=== PATIENT | male | born 1990 | race Caucasian/White ===

== ENCOUNTER 2019-11-03 18:36 | Emergency (ER) | payer BC ==
[~2019-11-03] VITALS: Ht 180.3 cm; Wt 101.0 kg
[2019-11-03 18:52] VITALS: BP 171/81
[2019-11-03] MEDS ORDERED: AMOXICILLIN/K CLAV 875/125MG TABLET. PO ONE (19:00)
[2019-11-03] MEDS ORDERED: TETANUS AND DIPHTHERIA TOX/PF 0.5 ML DISP.SYRIN. VAX IM ONE (19:00)
[2019-11-03] MEDS ORDERED: LIDOCAINE 1% Multi-Dose 20 ML VIAL. INJ ONE (19:00)
--- NOTE | 2019-11-03 19:00 | PHYS DOC ---
Past Medical History Past Medical History: No Pertinent History Past Surgical History: No Surgical History Smoking Status: Never Smoker Alcohol Use: None General Adult EDM: Chief Complaint: ANIMAL BITE HPI: HPI: Patient is a 29 year old left-handed male who was bit by his own husky prior to arrival. Dog is vaccinated. Patient sustained multiple puncture wound lacerations to left hand and left thumb and first finger. Patient has some tingling in the fingers. Limited range of motion due to pain. No other injuries. Pain is moderate in intensity and worse with palpation and movement. Review of Systems: Review of Systems: Constitutional: Denies fever or chills. [] Eyes: Denies change in visual acuity. [] HENT: Denies nasal congestion or sore throat. [] Respiratory: Denies cough or shortness of breath. [] Cardiovascular: Denies chest pain or edema. [] GI: Denies abdominal pain, nausea, vomiting, bloody stools or diarrhea. [] : Denies dysuria. [] Musculoskeletal: Denies back pain or joint pain. [] Integument: Laceration to left hand Neurologic: Denies headache, limited range of motion of left hand and decreased sensation. Endocrine: Denies polyuria or polydipsia. [] Lymphatic: Denies swollen glands. [] Psychiatric: Denies depression or anxiety. [] Heart Score: Risk Factors: Risk Factors: DM, Current or recent (<one month) smoker, HTN, HLP, family history of CAD, obesity. Risk Scores: Score 0 - 3: 2.5% MACE over next 6 weeks - Discharge Home Score 4 - 6: 20.3% MACE over next 6 weeks - Admit for Clinical Observation Score 7 - 10: 72.7% MACE over next 6 weeks - Early Invasive Strategies Physical Exam: PE: Constitutional: Well developed, well nourished, no acute distress, non-toxic appearance. [] HENT: Normocephalic, atraumatic, bilateral external ears normal, no trismus, nose normal. [] Eyes: PERRLA, EOMI, conjunctiva normal, no discharge. [] Neck: Normal range of motion, no tenderness, supple, no stridor. [] Cardiovascular:Heart rate regular rhythm, peripheral pulses intact, cap refill brisk Lungs & Thorax: Bilateral breath sounds clear, no respiratory distress Abdomen: No distention Skin: Multiple small puncture wounds to left hand and index finger Back: No tenderness, no CVA tenderness. [] Extremities: Multiple puncture wounds to left hand index finger and thumb, limited range of motion due to pain. Slight decreased sensation distally but can feel gross sensation. Left thumb nailbed partially avulsed. Lacerations all non-gaping. Neurologic: Alert and oriented X 3, slight decrease of range of motion left thumb and index finger, slight decrease sensation of the thumb and index. Psychologic: Affect normal, judgement normal, mood normal. [] Current Patient Data: Vital Signs: Vital Signs Date Time Temp Pulse Resp B/P (MAP) Pulse Ox O2 Delivery O2 Flow Rate FiO2 11/03/19 18:52 98.6 79 20 171/81 (111) 98 Room Air 98.6 EKG: EKG: [] Radiology/Procedures: Radiology/Procedures: [][facility] [address] [place] [address] IMAGING REPORT Signed PATIENT: HAILY CALL ACCOUNT: [id number] : 1990 LOCATION: ER AGE: 29 SEX: M EXAM STATUS: REG ER ORD. PHYSICIAN: MAU ORTEGA MD REASON: DOG BITE PROCEDURE: HAND LEFT 3V HAND LEFT 3V History: Dog bite Comparison: None. Findings: 3 views of the left hand are submitted. There is a small corticated likely avulsed bone fragment along the radial proximal aspect of the third proximal phalanx. No convincing acute fracture is identified. Impression: 1. There is a small corticated bone fragment along the radial proximal aspect of the third proximal phalanx believed to be old. Electronically signed by: Raul Carmen MD (11/03/2019 8:36 PM) [facility] DICTATED and SIGNED BY: RAUL CARMEN MD DATE: 11/03/192035 Course & Med Decision Making: Course & Med Decision Making Pertinent Labs and Imaging studies reviewed. (See chart for details) [] After verbal consent was obtained a digital block was performed on the left using a dorsal approach. Approximately 3 cc of 1% lidocaine was administered with good anesthesia. No complications. The wounds were then irrigated with saline and then the patient will start all wounds with soap and water copiously irrigated with saline again. This is done on the thumb as well as the entire hand. The exposed nail bed was then tucked under the proximal skin, there is a laceration under the nailbed that is well approximated not actively bleeding. 29-year-old male with dog bite to left hand. Wounds are not gaping and I feel like suturing him at this time will be increasing the risk of infection. Patient has gotten antibiotics and tetanus in the ER. Wounds were all copiously irrigated and the nail matrix has been approximated to near anatomic position Dragon Disclaimer: Dragon Disclaimer: This electronic medical record was generated, in whole or in part, using a voice recognition dictation system. Departure Departure Impression: Primary Impression: Dog bite of left hand Additional Impressions: Puncture wound of left hand Injury of left thumbnail Disposition: HOME, SELF-CARE Condition: STABLE Referrals: NO PCP (PCP) OLEGARIO NAVARRO MD 2-3 DAYS Patient Instructions: Animal Bite, Nail Bed Injury Additional Instructions: EMERGENCY DEPARTMENT GENERAL DISCHARGE INSTRUCTIONS THANK YOU for coming to [facility] Emergency Department (ED) today and trusting us with your care. We trust that you had a positive experience in our Emergency Department. If you wish to speak to the department Management you can contact the soaping department supervisor at . YOUR FOLLOW UP INSTRUCTIONS ARE FOLLOWS: Do you have a private doctor? If you do not have a private doctor, please ask for a resource list of physicians or clinics that may be able to assist you with follow up care. The Emergency Physician has interpreted your x-rays. The X-ray specialist will also review them. If there is a change in the findings you will be notified in 48 hours when at all possible. A lab test or lab culture may have been done, your results will be reviewed and you will be notified if you need a change in treatment. ADDITIONAL INSTRUCTIONS AND INFORMATION Your care today has been supervised by a physician who is specially trained in emergency care. Many problems require more than one evaluation for a complete diagnosis and treatment. We recommend that you schedule your follow up appointment as recommended to ensure complete treatment of your illness or injury. If you are unable to obtain follow up care and continue to have a problem, or if your condition worsens we recommend that you return to the ED. We are not able to safely determine your condition over the phone nor are we able to give sound medical advice over the phone. For these safety reasons, if you call for medical advice we will ask you to come to the ED for further evaluation If you have any questions regarding these discharge instructions please call the ED at . SAFETY INFORMATION In the interest of safety, wellness, and injury prevention; we encourage you to wear your seatbelt, if you smoke; quit smoking, and we encourage your family to use protective helmet for bicycling and other sporting events that present an increased risk for head injury. IF YOUR SYMPTOMS WORSEN OR NEW SYMPTOMS DEVELOP, OR YOU HAVE CONCERNS ABOUT YOUR CONDITION; OR IF YOUR CONDITION WORSENS WHILE YOU ARE WAITING FOR YOUR FOLLOW UP APPOINTMENT; EITHER CONTACT YOUR PRIMARY CARE DOCTOR, THE PHYSICIAN WHOSE NAME AND NUMBER YOU WERE GIVEN, OR RETURN TO THE ED IMMEDIATELY. Scripts Hydrocodone/Apap 5-325 (NORCO 5-325 TABLET) 1 Each Tablet 1-2 EACH PO PRN Q6HRS PRN for PAIN, #15 as needed for pain Prov: MAU ORTEGA MD 11/03/19 Amoxicillin/Potassium Clav (AUGMENTIN 875-125 TABLET) 1 Each Tablet 1 TAB PO BID for 10 Days, #20 TAB 0 Refills Prov: MAU ORTEGA MD 11/03/19 Justicifation of Admission Dx: Justifications for Admission: Justification of Admission Dx: N/A MAU ORTEGA MD Nov 03, 2019 19:00
[2019-11-03] MEDS ORDERED: HYDROcodone/APAP 7.5/325MG 1 TAB TABLET PO ONE (19:15)
--- NOTE | 2019-11-03 20:39 | RAD ---
HAND LEFT 3V History: Dog bite Comparison: None. Findings: 3 views of the left hand are submitted. There is a small corticated likely avulsed bone fragment along the radial proximal aspect of the third proximal phalanx. No convincing acute fracture is identified. Impression: 1. There is a small corticated bone fragment along the radial proximal aspect of the third proximal phalanx believed to be old. Electronically signed by: Luis Christianson MD (11/03/2019 8:36 PM) [facility]
[2019-11-03] MEDS ORDERED: HYDR-3164 PO (20:52)
[2019-11-03] MEDS ORDERED: AMOX1TAB61 PO (20:52)
== END 2019-11-03 21:00 | disposition home or self-care (01) ==
LOC: EDBD 18:36 → ER 18:36
DX: S61.112A Laceration without foreign body of left thumb with damage to nail, initial encounter (principal); R20.2 Paresthesia of skin; W54.0XXA Bitten by dog, initial encounter; Y93.89 Activity, other specified; Y92.89 Other specified places as the place of occurrence of the external cause; Y99.8 Other external cause status
CPT/HCPCS: 11760; 73130; 90471; 90714; 99285; J3490